=== PATIENT | male | born 1980 | race Caucasian/White ===

== ENCOUNTER → 2016-11-12 | Outpatient (CLI) | payer OTHER ==
[~2016-11-12] MED LIST: LORA10TA3 PO
== END | disposition home or self-care (01) ==
LOC: RAD 09:17
PROVIDERS: ATTEND Family Medicine
DX: M54.5 Low back pain (principal)
CPT/HCPCS: 72100

== ENCOUNTER → 2017-01-19 | Outpatient (CLI) | payer OTHER | END | disposition home or self-care (01) | LOC: RAD 15:20 | PROVIDERS: ATTEND Orthopaedic Surgery | DX: S83.411D Sprain of medial collateral ligament of right knee, subsequent encounter (principal); S83.511D Sprain of anterior cruciate ligament of right knee, subsequent encounter; M25.461 Effusion, right knee; M71.21 Synovial cyst of popliteal space [Baker], right knee; Z98.890 Other specified postprocedural states; X58.XXXD Exposure to other specified factors, subsequent encounter ==

== ENCOUNTER 2020-01-04 10:54 | Outpatient (CLI) | payer OTHER ==
[~2020-01-04 10:54] MED LIST changes: +LORA-247 PO; -LORA10TA3 PO
== END 2020-01-04 23:59 | disposition home or self-care (01) ==
LOC: STAR 10:54
PROVIDERS: ATTEND Orthopaedic Surgery
DX: Z02.9 Encounter for administrative examinations, unspecified (principal)

== ENCOUNTER 2020-01-10 05:51 | Day surgery (SDC) | payer OTHER ==
[~2020-01-10] VITALS: Ht 172.7 cm; Wt 70.9 kg
[2020-01-10 06:14] VITALS: BP 122/72
[2020-01-10] MEDS ORDERED: LACTATED RINGERS 1,000 ML IV SCH (06:14)
[2020-01-10] MEDS ORDERED: BUPIVACAINE/PF 0.5% ONE (06:30)
[2020-01-10] MEDS ORDERED: BUPIVACAINE/PF-EPI 0.5% 1:200K ONE (06:30)
[2020-01-10] MEDS ORDERED: CHLORHEXIDINE 15 ML UDC MM ONE (06:30)
[2020-01-10] MEDS ORDERED: FENTANYL PF 100 MCG/2ML ONE ×2 (06:49→08:47)
[2020-01-10] MEDS ORDERED: MIDAZOLAM 1 MG/ML, 2ML ONE (06:49)
[2020-01-10] MEDS ORDERED: MIDAZOLAM 1 MG/ML, 2ML IV PRN (07:00)
[2020-01-10] MEDS ORDERED: LABETALOL 5MG/ML, 20ML IV PRN (07:00)
[2020-01-10] MEDS ORDERED: hydrALAzine 20 MG/ML, 1ML IV PRN (07:00)
[2020-01-10] MEDS ORDERED: PROMETHAZINE 25 MG/ML, 1ML IVPush PRN (07:00)
[2020-01-10] MEDS ORDERED: OXYcodone 5 MG/5 ML ORAL.SOL UDC PO PRN (07:00)
[2020-01-10] MEDS ORDERED: ACETAMINOPHEN 325 MG TABLET PO PRN (07:00)
[2020-01-10] MEDS ORDERED: PROPOFOL 10 MG/ML, 50ML ONE (07:07)
[2020-01-10] MEDS ORDERED: ONDANSETRON 2MG/ML, 2ML ONE (07:07)
[2020-01-10] MEDS ORDERED: DEXAMETHASONE 4 MG/ML, 1ML ONE (07:07)
[2020-01-10] MEDS ORDERED: KETOROLAC 30 MG/1 ML ONE (07:07)
[2020-01-10] MEDS ORDERED: LIDOCAINE PF 2%, 5ML ONE (07:07)
[2020-01-10] MEDS ORDERED: CEFAZOLIN 1,000 MG ONE (07:07)
[2020-01-10] MEDS ORDERED: PROPOFOL 10 MG/ML, 20ML ONE (07:07)
[2020-01-10] MEDS ORDERED: BUPIVACAINE/PF-EPI 0.5% 1:200K INFIL ONE (07:22)
[2020-01-10] MEDS ORDERED: BACITRACIN 50,000 UNIT IRRIG ONE (07:22)
[2020-01-10] MEDS ORDERED: BACITRACIN 50,000 UNIT ONE (07:30)
[2020-01-10] MEDS ORDERED: MEPERIDINE/PF 25MG/ML,1ML ONE ×2 (08:35→09:05)
[2020-01-10] MEDS: MEPERIDINE/PF 25MG/0.5ML IVPush PRN ×2 (08:37→09:07)
[2020-01-10] MEDS ORDERED: OXYcodone 5 MG/5 ML ORAL.SOL UDC ONE (08:47)
[2020-01-10] MEDS: FENTANYL PF 100 MCG/2ML IV PRN ×3 (08:50→09:24)
== END 2020-01-10 14:47 | disposition home or self-care (01) ==
LOC: OUT 05:51
PROVIDERS: ATTEND Orthopaedic Surgery
DX: M19.141 Post-traumatic osteoarthritis, right hand (principal); Z11.59 Encounter for screening for other viral diseases; G43.909 Migraine, unspecified, not intractable, without status migrainosus; Z79.899 Other long term (current) drug therapy
CPT/HCPCS: 26860; 73140; C1713; J0690; J1100; J1885; J2175; J2250; J2405; J2704; J3010; J7120; U0001; 76000

== ENCOUNTER → 2020-04-22 | Outpatient (CLI) | payer OTHER ==
[2020-04-22 07:51] LABS: BASOPHILS # (AUTO) 0.02 x10^3/uL (0-0.1); BASOPHILS % (AUTO) 0 % (0-1); EOSINOPHILS # (AUTO) 0.11 x10^3/uL (0-0.4); EOSINOPHILS % (AUTO) 2 % (1-7); LYMPHOCYTES # (AUTO) 1.48 x10^3/uL (1-3.4); LYMPHOCYTES % (AUTO) 27 % (22-44); MD NO; MEAN CORPUSCULAR HEMOGLOBIN 31.5 pg (27.5-34.5); MEAN CORPUSCULAR HGB CONC 32.9 g/dL (33.2-36.2); MEAN CORPUSCULAR VOLUME 95.7 fL (81-97); MEAN PLATELET VOLUME 8.2 fL (7.4-10.4); MONOCYTES # (AUTO) 0.25 x10^3/uL (0.2-0.8); MONOCYTES % (AUTO) 5 % (2-9); NEUTROPHILS # (AUTO) 3.67 x10^3/uL (1.8-6.8); NEUTROPHILS % (AUTO) 66 % (42-75); PLATELET COUNT 230 x10^3/uL (130-400); RED BLOOD COUNT 4.83 x10^6/uL (4.38-5.82); RED CELL DISTRIBUTION WIDTH 13.2 % (9.4-14.8)
[2020-04-22 07:55] LABS: CHLORIDE 109 mmol/L (98-107)
[2020-04-22 08:12] LABS: ALANINE AMINOTRANSFERASE 24 U/L (12-78); ALBUMIN 4.3 g/dL (3.4-5.0); ALKALINE PHOSPHATASE 63 U/L (45-117); ANION GAP 8 mmol/L (5-15); BILIRUBIN,TOTAL 0.8 mg/dL (0.2-1.0); CALCIUM 9.4 mg/dL (8.5-10.1); CHOL/HDL RATIO 2.7; CHOLESTEROL, TOTAL 191 mg/dL (140-239); CREATININE 1.24 mg/dL (0.7-1.3); HDL CHOL % 37 % (26-37); HDL CHOLESTEROL (DIRECT) 70 mg/dL (40-60); LDL CHOLESTEROL,CALCULATED 107 mg/dL (54-169); LDL/HDL RATIO 1.5 (0.5-3.0); TOTAL PROTEIN 8.1 g/dL (6.4-8.2); TRIGLYCERIDES 72 mg/dL (50-200); VLDL CHOLESTEROL 14 mg/dL (0-25)
== END | disposition home or self-care (01) ==
LOC: LAB 07:31
PROVIDERS: ATTEND Internal Medicine
DX: Z00.00 Encounter for general adult medical examination without abnormal findings (principal)
CPT/HCPCS: 36415; 80053; 80061; 83036; 85025

== ENCOUNTER → 2020-12-06 | Outpatient (CLI) | payer OTHER | END | disposition home or self-care (01) | LOC: RAD 13:52 | PROVIDERS: ATTEND Internal Medicine | DX: S89.91XA Unspecified injury of right lower leg, initial encounter (principal); M71.21 Synovial cyst of popliteal space [Baker], right knee; M25.461 Effusion, right knee; X58.XXXA Exposure to other specified factors, initial encounter; Y93.89 Activity, other specified; Y92.89 Other specified places as the place of occurrence of the external cause; Y99.8 Other external cause status ==

== ENCOUNTER 2021-01-02 16:22 | Observation (INO) | payer OTHER ==
[~2021-01-02] VITALS: Ht 172.7 cm; Wt 70.6 kg
[~2021-01-02 16:22] MED LIST changes: +CHLORHEXIDINE 15 ML UDC PO ONE; +LACTATED RINGERS 1,000 ML IV SCH; +LIDOCAINE-MPF 1%, 2ML INFIL ONE
[2021-01-02] MEDS ORDERED: ROPIvacaine/PF 0.5%, 30 ML ONE (16:30)
[2021-01-02] MEDS ORDERED: LIDOCAINE/PF 1%-EPI 1:200K, 30 ML ONE (16:30)
[2021-01-02] MEDS ORDERED: MIDAZOLAM 1 MG/ML, 2ML ONE (16:52)
[2021-01-02] MEDS ORDERED: FENTANYL PF 100 MCG/2ML ONE ×2 (16:52→18:13)
[2021-01-02] MEDS ORDERED: DEXAMETHASONE 4 MG/ML, 1ML ONE ×2 (17:12→17:30)
[2021-01-02] MEDS ORDERED: ONDANSETRON 2MG/ML, 2ML ONE ×2 (17:14→17:30)
[2021-01-02] MEDS ORDERED: PROPOFOL 10 MG/ML, 20ML ONE (17:29)
[2021-01-02] MEDS ORDERED: CEFAZOLIN 1,000 MG ONE ×2 (17:30)
[2021-01-02] MEDS ORDERED: hydrALAzine 20 MG/ML, 1ML IV PRN (18:00)
[2021-01-02] MEDS ORDERED: LABETALOL 5MG/ML, 20ML IV PRN (18:00)
[2021-01-02] MEDS ORDERED: PROMETHAZINE 25 MG/ML, 1ML IVPush PRN (18:00)
[2021-01-02] MEDS ORDERED: DIAZEPAM 5 MG/ML, 2ML IVPush PRN (18:00)
[2021-01-02] MEDS ORDERED: HYDROmorphone 1 MG/ML, 1ML INJ IVPush PRN (18:00)
[2021-01-02] MEDS ORDERED: OXYcodone 5 MG/5 ML ORAL.SOL UDC PO PRN ×2 (18:00→21:30)
[2021-01-02] MEDS ORDERED: ONDANSETRON 2MG/ML, 2ML IVPush PRN (18:00)
[2021-01-02] MEDS ORDERED: PROMETHAZINE 12.5 MG SUPP PR PRN (18:00)
[2021-01-02] MEDS ORDERED: ACETAMINOPHEN 325 MG TABLET PO PRN (18:00)
[2021-01-02] MEDS ORDERED: ALBUTEROL SULFATE 2.5 MG/3 ML NPPB PRN (18:00)
[2021-01-02] MEDS ORDERED: MIDAZOLAM 1 MG/ML, 2ML IV PRN (18:00)
[2021-01-02] MEDS ORDERED: DIPHENHYDRAMINE 50 MG/ML, 1ML IVPush PRN ×2 (18:00)
[2021-01-02] MEDS ORDERED: EPHEDRINE 50 MG/ML, 1ML IVPush PRN (18:00)
[2021-01-02] MEDS ORDERED: OXYcodone 5 MG/5 ML ORAL.SOL UDC ONE (18:13)
[2021-01-02] MEDS: FENTANYL PF 100 MCG/2ML IV PRN ×4 (18:16→18:34)
[2021-01-02] MEDS ORDERED: MEPERIDINE/PF 25MG/ML,1ML ONE ×2 (18:17→18:37)
[2021-01-02] MEDS: MEPERIDINE/PF 25MG/0.5ML IVPush PRN ×3 (18:21→18:42)
[2021-01-02] MEDS ORDERED: PROMETHAZINE 25 MG/ML, 1ML IM PRN (21:30)
[2021-01-02 22:51] VITALS: BP 116/73
== END 2021-01-02 23:05 | disposition home or self-care (01) ==
LOC: OR 16:22 → ORIP 21:02 → 4NE 21:38
PROVIDERS: ADMIT Orthopaedic Surgery; ATTEND Orthopaedic Surgery
DX: S83.241A Other tear of medial meniscus, current injury, right knee, initial encounter (principal); Z20.822 Contact with and (suspected) exposure to COVID-19; M94.261 Chondromalacia, right knee; Z79.899 Other long term (current) drug therapy; X58.XXXA Exposure to other specified factors, initial encounter; Y93.67 Activity, basketball; Y92.310 Basketball court as the place of occurrence of the external cause
CPT/HCPCS: 29880; G0378; J0690; J1100; J2175; J2250; J2405; J2704; J2795; J3010; J7120; U0003; U0005

== ENCOUNTER → 2021-04-30 | Outpatient (CLI) | payer OTHER | END | disposition home or self-care (01) | LOC: LAB 08:26 | PROVIDERS: ATTEND Internal Medicine | DX: Z00.00 Encounter for general adult medical examination without abnormal findings (principal) ==